=== PATIENT | female | born 1940 | race Caucasian/White ===

== ENCOUNTER → 2017-03-11 | Outpatient (CLI) | payer MEDICARE ==
--- NOTE | 2017-03-11 21:58 | US ---
EXAMINATION TYPE: US carotid duplex BILAT DATE OF EXAM: 03/11/2017 COMPARISON: NONE CLINICAL HISTORY: G45.9 Transient cerebral ischemic attack, unspecif. TIA, lightheaded EXAM MEASUREMENTS: RIGHT: Peak Systolic Velocity (PSV) cm/sec ----- Right CCA: 44.8 ----- Right ICA: 86.6 ----- Right ECA: 65.1 ICA/CCA ratio: 1.9 RIGHT: End Diastole cm/sec ----- Right CCA: 10.7 ----- Right ICA: 28.2 ----- Right ECA: 11.0 LEFT: Peak Systolic Velocity (PSV) cm/sec ----- Left CCA: 51.2 ----- Left ICA: 129.8 ----- Left ECA: 36.9 ICA/CCA ratio: 2.5 LEFT: End Diastole cm/sec ----- Left CCA: 15.5 ----- Left ICA: 37.7 ----- Left ECA: 5.1 VERTEBRALS (direction of flow): Right Vertebral: Antegrade Left Vertebral: Antegrade Rhythm: Normal Mild homogeneous plaque noted with increased velocity seen at mid left ICA Grayscale images show mild to minimal eccentric hyperechoic plaque distal left common carotid artery and more focal mild to moderate peripheral plaque at left carotid bulb. There is slight increased pea k systolic velocity in abnormal ratio. End-diastolic velocity remains upper limits of normal IMPRESSION: Asymmetric mild to moderate left-sided atherosclerotic change but I feel stenosis is a pproaching but under 50%.
== END | disposition home or self-care (01) ==
LOC: RADUSWWP 15:44
PROVIDERS: ATTEND Family Medicine
DX: I70.0 Atherosclerosis of aorta (principal); G45.9 Transient cerebral ischemic attack, unspecified
CPT/HCPCS: 93880

== ENCOUNTER → 2018-01-14 | Outpatient (CLI) | payer MEDICARE ==
--- NOTE | 2018-01-14 14:52 | US ---
EXAMINATION TYPE: US venous doppler duplex LE BI DATE OF EXAM: 01/14/2018 2:30 PM COMPARISON: NONE CLINICAL HISTORY: R60.0 Edema. SIDE PERFORMED: anel TECHNIQUE: The lower extremity deep venous system is examined utilizing real time linear array sonog kylah with graded compression, doppler sonography and color-flow sonography. VESSELS IMAGED: External Iliac Vein (EIV) Common Femoral Vein Deep Femoral Vein Greater Saphenous Vein * Femoral Vein Popliteal Vein Small Saphenous Vein * Proximal Calf Veins (* superficial vessels) Right Leg: Negative for DVT Left Leg: Negative for DVT Grayscale, color doppler, spectral doppler imaging performed of the deep veins of the bilateral lowe r extremities. There is normal flow, compressibility, vascular waveforms. IMPRESSION: No ultrasound evidence for acute DVT in either lower extremity.
== END | disposition home or self-care (01) ==
LOC: RADUSWWP 13:49
PROVIDERS: ATTEND Family Medicine
DX: R60.0 Localized edema (principal)
CPT/HCPCS: 93970

== ENCOUNTER → 2019-01-24 | Outpatient (CLI) | payer MEDICARE ==
--- NOTE | 2019-01-24 13:39 | US ---
EXAMINATION TYPE: US venous doppler duplex LE BI DATE OF EXAM: 01/24/2019 10:37 AM COMPARISON: 01/14/2018 CLINICAL HISTORY: 78-year-old female Edema R60.0. Right leg pain and swelling. SIDE PERFORMED: Bilateral TECHNIQUE: The lower extremity deep venous system is examined utilizing real time linear array sonog kylah with graded compression, doppler sonography and color-flow sonography. FINDINGS: VESSELS IMAGED: External Iliac Vein (EIV) Common Femoral Vein Deep Femoral Vein Greater Saphenous Vein * Femoral Vein Popliteal Vein Small Saphenous Vein * Proximal Calf Veins (* superficial vessels) Right Leg: Negative for DVT Left Leg: Negative for DVT IMPRESSION: No evidence for DVT within the bilateral lower extremities imaged from the groin to the upper calves.
== END | disposition home or self-care (01) ==
LOC: RADUSWWP 10:17
PROVIDERS: ATTEND Family Medicine
DX: R60.0 Localized edema (principal)
CPT/HCPCS: 93970

== ENCOUNTER → 2019-06-08 | Outpatient (CLI) | payer MEDICARE ==
--- NOTE | 2019-06-08 10:32 | XR ---
EXAMINATION TYPE: XR knee complete RT DATE OF EXAM: 06/08/2019 CLINICAL HISTORY: Right knee pain and swelling. TECHNIQUE: Three views of the right knee are obtained. COMPARISON: None. FINDINGS: There is no acute fracture/dislocation evident in right knee. The tri-compartment joint s paces appear aligned, however small marginal osteophytes are seen of all 3 compartments. The overlyi ng soft tissue appears unremarkable. IMPRESSION: There is no acute fracture or dislocation in the right knee. Mild tricompartmental arthr opathy.
== END | disposition home or self-care (01) ==
LOC: RADXRMAIN 09:17
PROVIDERS: ATTEND Family Medicine
DX: M17.11 Unilateral primary osteoarthritis, right knee (principal); M23.91 Unspecified internal derangement of right knee

== ENCOUNTER → 2020-10-25 | Outpatient (CLI) | payer MEDICARE ==
[2020-10-25 16:29] LABS: Appearance,Urine Clear (Clear); Bilirubin,Urine Negative (Negative); Blood,Urine Small (Negative); Color,Urine Yellow; Glucose,Urine (UA) Negative (Negative); Ketones,Urine Negative (Negative); Leukocyte Esterase,Urine Trace (Negative); Nitrite,Urine Negative (Negative); PH, Urine 6.5 (5.0-8.0); Protein,Urine Negative (Negative); RBC,Urine 4 /hpf (0-5); Specific Gravity,Urine 1.017 (1.001-1.035); Squamous Epithelial Cell,Urine 2 /hpf (0-4); Urobilinogen,Urine <2.0 mg/dL (<2.0); WBC,Urine 3 /hpf (0-5)
[2020-10-25 16:30] LABS: Albumin 3.7 g/dL (3.5-5.0); Calcium 9.7 mg/dL (8.4-10.2); Potassium 4.4 mmol/L (3.5-5.1); Total Bilirubin 0.1 mg/dL (0.2-1.3); Total Protein 6.8 g/dL (6.3-8.2)
[2020-10-25 16:33] LABS: INR 0.9 (<1.2); Partial Thromboplastin Time 23.7 sec (22.0-30.0); Prothrombin Time 9.9 sec (9.0-12.0)
[2020-10-25 16:40] LABS: HCT 38.1 % (34.0-46.0); HGB 12.3 gm/dL (11.4-16.0); MCH 30.9 pg (25.0-35.0); MCHC 32.3 g/dL (31.0-37.0); MCV 95.7 fL (80.0-100.0); Mean Platelet Volume 8.6; Platelet Count 263 k/uL (150-450); RBC 3.98 m/uL (3.80-5.40); RDW 13.5 % (11.5-15.5); WBC 9.8 k/uL (3.8-10.6)
== END | disposition home or self-care (01) ==
LOC: LABPAT 15:19
PROVIDERS: ATTEND Orthopaedic Surgery
DX: Z01.810 Encounter for preprocedural cardiovascular examination (principal); Z01.812 Encounter for preprocedural laboratory examination
CPT/HCPCS: 36415; 80053; 81001; 85027; 85610; 85730; 87070; 93005

== ENCOUNTER 2020-11-19 10:44 | Day surgery (SDC) | payer MEDICARE ==
[2020-10-31 12:33] VITALS: BMI 28.9
[~2020-11-19 10:44] MED LIST: ACETAMINOPHEN TAB 500 MG TAB PO PRN; DEXAMETHASONE SOD PHOSPHATE 4 MG/ML 1 ML VIAL IV ONE; GABAPENTIN 300 MG CAP PO PRN; HYDROmorphone 0.5 MG/0.5 ML SYRINGE IVP PRN; LIDOCAINE 1% (10MG/ML) FOR IV START INTRADERMA PRN; MELOXICAM 7.5 MG TAB PO PRN; MIDAZOLAM 2 MG/2 ML VIAL IV PRN; ONDANSETRON 4 MG/2 ML VIAL IVP ONE; ONDANSETRON 4 MG/2 ML VIAL IVP PRN; ROPIVACAINE/EPI/CLONIDINE/KET 50 ML SYRINGE MISCELLANE PRN; TRANEXAMIC ACID 1,000 MG in SODIUM CHLORIDE 0.9% 100 ML IVPB PRN
[2020-11-19] MEDS ORDERED: LACTATED RINGERS 1,000 ML IV ONE (11:52)
[2020-11-19] MEDS ORDERED: MIDAZOLAM 2 MG/2 ML VIAL IV ONE (12:06)
[2020-11-19] MEDS ORDERED: TRANEXAMIC ACID 1,000 MG/10 ML VIAL ONE (12:39)
[2020-11-19] MEDS ORDERED: DEXAMETHASONE SOD PHOSPHATE 4 MG/ML 1 ML VIAL ONE (12:39)
[2020-11-19] MEDS ORDERED: PROPOFOL 10 MG/ML 20 ML VIAL IV ONE (12:39)
[2020-11-19] MEDS ORDERED: fentaNYL (PF) 50 MCG/ML 2 ML AMP ONE (12:39)
[2020-11-19] MEDS ORDERED: ROPIVACAINE 5 MG/ML 30 ML VIAL ONE (12:39)
[2020-11-19] MEDS ORDERED: LIDOCAINE 1% INJ 10MG/ML (20 ML MDV) ONE (12:39)
[2020-11-19] MEDS ORDERED: ePHEDrine SULFATE/0.9% NACL/PF 50 MG/5 ML SYRINGE IV ONE (12:39)
[2020-11-19] MEDS ORDERED: SODIUM CHLORIDE 0.9% 100 ML BAG ONE (12:39)
--- NOTE | 2020-11-19 14:02 | P.OP ---
Date of Procedure: 11/19/20 Procedure(s) Performed: PREOPERATIVE DIAGNOSIS: Right knee severe osteoarthritis with genu varum POSTOPERATIVE DIAGNOSIS: Right knee severe osteoarthritis with genu varum OPERATION: Right knee cemented total replacement arthroplasty. ANESTHESIA: Spinal and regional ESTIMATED BLOOD LOSS: 100 ml. SPECIAL EDUCATION PARA PROFESSIONAL: Gaye Hernandez PA-C (assistance with: patient positioning, retraction, exposure, hemostasis, leg positioning, implantation, irrigation, closure, dressing) COMPLICATIONS: None apparent. COMPONENTS IMPLANTED: Journey II BCS [facility] INDICATIONS: Mrs. Gurrola is an 79 year old female with a history of right knee osteoarthritis. The patient's knee is end-stage, and conservative management has failed. The operation of knee replacement has been discussed at length in the office, as well as potential risks and complications. These are inclusive of, but not limited to: bleeding, infection, scarring, discomfort, blood vessel and nerve damage, need for further surgery, failure to relieve symptoms, persistence, recurrence, or worsening of problems, loosening, dislocation, wear, blood clot, pulmonary embolism, , gait dysfunction, stiffness, and other risks as discussed in the office. The patient elects to proceed and the consent form has been signed. PROCEDURE: The patient was taken to the operating room and positioned on the operating room table in the supine position. Anesthesia was initiated. Care was taken to make sure that all pressure points were adequately padded. The operative lower extremity was prepped and draped in the usual aseptic fashion using ChloraPrep. Ioban drape was used for the case and the patient received intravenous antibiotics within one hour of the incision. A pneumotourniquet and leg whitaker were used for the case. The limb was exsanguinated with an Esmarch bandage and the tourniquet was inflated to 350 mmHg. Time-out was called confirming the patient's identity, side, procedure and administration of antibiotics and tranexamic acid. The incision was then created midline directly over the right knee, carried down through skin and into the subcutaneous tissues and down to fascia. Full thickness subcutaneous medial flap was developed. Medial parapatellar arthrotomy was performed and the interior of the knee was inspected. There was end-stage osteoarthritis of the knee with a mild to moderate genu valgum type deformity. The fat pad was excised and proximal medial release on the tibia was completed using meticulous dissection and a curved osteotome. The anterior cruciate ligament was taken down. Note was made of significant attrition of the anterior and significant degenerative appearance of the cruciate ligaments. The exposure was excellent. The knee was flexed 90 degrees and the patella was everted. The [employer] pre- made distal cutting block was attached and pinned into position. The planned cut was analyzed visually and with the alignment consuelo and found to be satisfactory without the need for any adjustment. The oscillating saw was then used to make the distal femoral cut and make the alignment holes for the 5 in 1 block. This cut was confirmed to be flat with the flat end of an osteotome. The 5 in 1 block was then used to create the anterior posterior condylar resections and the chamfer cuts. The retractors were placed around the tibia and the tibial surface was addressed. The [employer] pre-made guide was placed onto the exposed tibial surface and pinned into position to arlette the rotational alignment. The alignment of the guide was checked for depth of plannned resection, slope, and varus valgus. Guide was confirmed to be in good position and the tibial cut was then created with protection of the posterior neurovascular structures and the collateral ligaments. The tibial cut surface was removed and sized. Spacer block technique was then used to confirm that the flexion and extension gaps were equal. Soft tissue releases and adjustment of the tibial and/or femoral cuts were made, as necessary, until the gaps were equal. This included release of the posterior cruciate ligament, which was excessively tight in this patient. The trial components were inserted. The tibial tray was allowed to self center and the patella was noted to track very well. The position of the tibial component was marked and noted to be nearly exactly aligned with the pre-drilled holes from the [employer] guide. The tibia was then finished for a stemmed tibial component. Patellar resurfacing was performed using a reamer. The size of the required patellar component was estimated and the patellar surface was then reamed down to a residual thickness which would recreate the [place] thickness with the component. The exact placement of the patellar component was adjusted for position based on preoperative x-rays and intraoperative findings. Trial components were removed and the cut surfaces of the bone were pulse lavaged thoroughly and dried. Cement was mixed on the back table and applied to the final components. Cement was then applied to the tibial surface and pressurized into the surface using finger pressurization technique. The tibial component was then applied and excess cement was removed after it was impacted securely and noted to be flush with the cut surface. In similar fashion, the cement was applied to the cut femoral surface, pressurized in using finger pressurization and the component was impacted into place. Excess cement was removed. The polyethylene spacer was then implanted and locked into position. The patellar component was then applied in similar technique and a patellar clamp was used to hold the patella in place as the cement hardened. Once the cement had fully hardened, the knee was reinspected. Any other cement extrusion was removed and final kinematic testing showed range of motion from 0 to 130 degrees with excellent stability, both medially and laterally and appropriate alignment of the leg. Patellar tracking was excellent. The knee was then thoroughly pulse lavaged with normal saline. The tourniquet was deflated and hemostasis was obtained with electrocautery and IV tranexamic acid, 1 g given at the start of the operation and 1 g at the start of closure. Closure was with #2 Ethibond in the fascia/capsule and supplemented with #2 Quill, 2-0 Vicryl suture was used for the subcutaneous tissues and 3-0 Quill for the skin. Dermabond/Steri-Strips were then applied. A lightly compressive dressing was applied using Webril and an Tres wrap. The patient was then transferred to stretcher and taken to the recovery room in stable condition. Sponge and needle counts were correct.
[2020-11-19] MEDS ORDERED: HYDROmorphone 0.2 MG/1 ML SYRINGE IVP PRN (14:43)
[2020-11-19] MEDS ORDERED: HYDROmorphone 0.5 MG/0.5 ML SYRINGE IVP PRN ×2 (14:43)
[2020-11-19] MEDS ORDERED: HYDROcodone/APAP 5-325MG 1 EACH TAB PO PRN ×2 (14:43)
[2020-11-19] MEDS ORDERED: NALOXONE 0.4 MG/ML 1 ML VIAL IV PRN (14:43)
[2020-11-19] MEDS ORDERED: hydrOXYzine pamoate 25 MG CAP PO PRN (14:43)
[2020-11-19] MEDS ORDERED: ONDANSETRON 4 MG/2 ML VIAL IVP PRN (14:43)
--- NOTE | 2020-11-19 14:58 | XR ---
EXAMINATION TYPE: XR knee limited RT DATE OF EXAM: 11/19/2020 CLINICAL HISTORY: Right knee pain and arthritis status post total knee replacement. TECHNIQUE: Portable AP and crosstable lateral views of the right knee are obtained immediately posto peratively. COMPARISON: 06/08/2019 FINDINGS: Metallic hardware from total right knee arthroplasty is seen with a few bony fragments in the lateral joint space measuring up to 1 cm. There is evidence of recent surgery with diffuse subcu taneous gas , vertical skin grace, and percutaneous suprapatellar surgical drain noted. IMPRESSION: Metallic hardware from total right knee arthroplasty is seen with a few bony fragments in the lateral joint space measuring up to 1 cm.
[2020-11-19] MEDS ORDERED: ROPIVACAINE 0.2%-NS ON-Q PUMP 1,090 MG, EMPTY PAIN BALL 1 EACH MISCELLANE PRN (15:00)
[2020-11-19] MEDS: LACTATED RINGERS 1,000 ML IV SCH (16:01)
[2020-11-19] MEDS: SODIUM CHLORIDE 0.9% 1,000 ML IV SCH (16:36)
[2020-11-19] MEDS: ASPIRIN 81 MG PO SCH (20:45)
[2020-11-19] MEDS: amLODIPine 5 MG TAB PO SCH (20:46)
[2020-11-19] MEDS ORDERED: SENNOSIDES-DOCUSATE SODIUM 1 EACH TAB PO SCH (21:00)
[2020-11-19] MEDS ORDERED: ATORVASTATIN 10 MG TAB PO SCH (21:00)
[2020-11-20] MEDS: SODIUM CHLORIDE 0.9% 1,000 ML IV SCH ×2 (01:22→09:50)
[2020-11-20 02:54] VITALS: RESP 16
[2020-11-20] MEDS: LACTATED RINGERS 1,000 ML IV SCH (04:41)
[2020-11-20] MEDS ORDERED: LEVOTHYROXINE 88 MCG TAB PO SCH (06:30)
--- NOTE | 2020-11-20 07:12 | CONS ---
CONSULTATION Covering for Dr. Shields. DATE OF CONSULTATION: 11/19/2020 REASON FOR CONSULTATION: Hypertension, hyperlipidemia. HISTORY: This 79-year-old woman with a past hypertension, history of DJD, history of thyroid cancer, history of ( ), is being followed by Dr. Freeman Shields in the outpatient setting, underwent right knee total arthroplasty by Dr. Vazquez. The patient tolerated the procedure well. The patient has some pain. The patient is going to ambulate with assistance at this time. There is no history of fever, rigors. No headache, loss of consciousness, seizures at this time. PAST MEDICAL HISTORY: History of hypertension, hypertension, DJD, hypothyroidism. MEDICATIONS: Medications prior to admission include Tenormin ( ), Zocor, Evista, MiraLAX, Synthroid, vitamin D3, calcium, vitamin C, aspirin. The doses are reviewed. ALLERGIES: ASPIRIN. FAMILY HISTORY: History of cancer in the family. SOCIAL HISTORY: No history of smoking. No alcohol intake. REVIEW OF SYSTEMS: ENT: No diminished vision. No diminished hearing. CARDIOVASCULAR SYSTEM: As mentioned earlier. GI: No nausea, vomiting. : No dysuria. NERVOUS SYSTEM: No numbness, weakness. ALLERGY: No asthma. MUSCULOSKELETAL: As mentioned. HEMATOLOGY: No history anemia. ENDOCRINE: As mentioned earlier. CONSTITUTIONAL: As mentioned. PSYCH: As mentioned earlier. PHYSICAL EXAMINATION: Patient is alert, oriented x3. The pulse is 52, blood pressure 120/77, respiration 20, temperature normal, pulse ox 98% on room air. HEENT: Conjunctivae normal. Oral mucosa moist. NECK: No jugular venous distention. No lymph node enlargement. CARDIOVASCULAR SYSTEM: S1, S2 muffled. RESPIRATION: Diminished breath sounds at the bases. No rhonchi. No crackles. ABDOMEN: Soft, nontender. No mass palpable. LEGS: No swelling. No edema. NERVOUS SYSTEM: As mentioned earlier. Moves all 4 limbs. LYMPHATICS: No lymph nodes. SKIN: No rashes. JOINTS: Status post surgery. LABS: The most recent labs are CBC within normal. The lytes are also normal. ASSESSMENT: 1. Status post right total knee joint arthroplasty. 2. Hypertension. 3. Hyperlipidemia. 4. History of degenerative joint disease. 5. Hypothyroidism. 6. History of bladder surgery. 7. Bradycardia. DISCUSSION AND RECOMMENDATIONS: This 79-year-old woman who presented with multiple complex medical issues, we will monitor the patient closely, continue the current management, recommend resume the home medication. Monitor blood pressure closely. Otherwise, we will follow the patient closely. The patient may be asked to follow with Dr. Shields closely. Thank you, Dr. Vazquez, for letting us participate in the care of this patient. MMODL / IJN: [id number] /
--- NOTE | 2020-11-20 07:23 | P.PN ---
Progress Note - Text 11/20/20 659am 79-year-old female status post total knee replacement by Dr. Vazquez. Patient seen and evaluated this morning for postop pain control, patient has an On-Q pump for pain relief with the solution running at 8 mL an hour. Patient has a VAS of 2 dressing clean dry and intact. Plan to continue On-Q pump infusion
[2020-11-20 07:27] VITALS: BP 120/62; PULSE 61; TEMP 97.4
--- NOTE | 2020-11-20 07:32 | P.ANPRN ---
Procedure Note - Anesthesia - Nerve Block Performed Right Adductor Canal Infusion Time Out Performed: Yes Date of Procedure: 11/19/20 Procedure Start Time: 12:05 Procedure Stop Time: 12:18 Location of Patient: PreOp Indication: Acute Post-Operative Pain, Requested by Surgeon Sedation Type: Sedate with meaningful contact maintained Preparation: Sterile Prep, Sterile Dressing Position: Supine Catheter: Indwelling Needle Types: Pajunk Needle Gauge: 21 Ultrasound used to visualize needle placement: Yes Ultrasound used to observe medication spread: Yes Blood Aspirated: No Pain Paresthesia on Injection Noted: No Resistance on Injection: Normal Image Stored and Saved: Yes Events: Uneventful and Well Tolerated (Ropivacaine 0.5% 20 mL was given)
--- NOTE | 2020-11-20 07:33 | P.ANPRN ---
Procedure Note - Anesthesia - Nerve Block Performed Right Emanuelck Single Time Out Performed: Yes Date of Procedure: 11/19/20 Location of Patient: PreOp Indication: Acute Post-Operative Pain, Requested by Surgeon Sedation Type: Sedate with meaningful contact maintained Preparation: Sterile Prep Position: Supine Needle Types: Pajunk Needle Gauge: 21 Ultrasound used to visualize needle placement: Yes Ultrasound used to observe medication spread: Yes Blood Aspirated: No Pain Paresthesia on Injection Noted: No Resistance on Injection: Normal Image Stored and Saved: Yes Events: Uneventful and Well Tolerated (Ropivacaine 0.5% 20 mL was given plus dexamethasone 4 mg)
[2020-11-20] MEDS: OXYBUTYNIN XL 5 MG TAB.ER.24 PO SCH ×2 (07:42→07:47)
[2020-11-20] MEDS: ASPIRIN 81 MG PO SCH (07:42)
[2020-11-20] MEDS: amLODIPine 5 MG TAB PO SCH (07:43)
[2020-11-20] MEDS ORDERED: CALCIUM CARBONATE 500 MG CHEWABLE PO SCH (09:00)
[2020-11-20] MEDS ORDERED: atenoloL 50 MG TAB PO SCH (09:00)
[2020-11-20] MEDS ORDERED: polyethylene glycoL 3350 17 GM POWD.PACK PO SCH (09:00)
[2020-11-20] MEDS ORDERED: CHOLECALCIFEROL 25 MCG (1000 IU) TABLET PO SCH (09:00)
[2020-11-20 10:24] LABS: Basophils # (A) 0.02 X 10*3/uL (0.00-0.10); Basophils % (A) 0.1 %; Eosinophils # (A) 0 X 10*3/uL (0.04-0.35); Eosinophils % (A) 0 %; HCT 37.5 % (37.2-46.3); HGB 11.8 g/dL (12.0-15.0); Lymphocytes # (A) 1.17 X 10*3/uL (0.90-5.00); Lymphocytes % (A) 6.3 %; MCH 31.1 pg (27.0-32.0); MCHC 31.5 g/dL (32.0-37.0); MCV 98.9 fL (80.0-97.0); Mean Platelet Volume 11.2 fL (9.5-12.2); Monocytes # (A) 1.25 X 10*3/uL (0.20-1.00); Monocytes % (A) 6.7 %; Neutrophils # (A) 15.99 X 10*3/uL (1.80-7.70); Neutrophils % (A) 86.3 %; Platelet Count 233 X 10*3/uL (140-440); RBC 3.79 X 10*6/uL (4.10-5.20); RDW 13.8 % (11.5-14.5); WBC 18.55 X 10*3/uL (4.50-10.00)
--- NOTE | 2020-11-20 10:58 | P.DS ---
Providers Expected date of discharge: 11/20/20 Attending physician: Justice Vazquez Consults: 11/19/20 14:43 Consult Physician Routine Consulting Provider: Freeman Shields Consult Reason/Comments: medical management Do you want consulting provider notified?: Yes Primary care physician: Freeman Shields [facility] Course: This is an 79-year-old female who was last seen with complaint of continued right knee pain. The patient has a known history of degenerative arthritis of the right knee and presents to discuss surgical options. After discussion and consideration the patient elects to proceed with total right knee arthroplasty. The patient is seen preoperatively by Dr. Shields and cleared for surgery. The patient is admitted to [facility] for total right knee arthroplasty. The procedures performed without complication or sequelae. Patient is doing well postoperatively. Vital signs are stable at discharge. Labs are stable at discharge. Patient is seen and examined bedside this morning. She is currently up to the bedside chair. Patient states her pain is well-controlled at this time. She is voiding freely. Patient is tolerating her diet well. She is ambulating with a walker with minimal assistance. Patient denies chest pain, shortness of breath, nausea, vomiting, numbness or tingling of the right lower extremity. The patient is discharged to home on postop day #1 pending medical clearance. Please see orders and refer to the [facility] for accurate list of medications. Patient Condition at Discharge: Fair Plan - Discharge Summary Discharge Rx Participant: Yes New Discharge Prescriptions: New Aspirin 81 mg PO BID 30 Days #60 chewable Sennosides-Docusate Sodium [Senokot-S] 2 tab PO HS PRN #30 tablet PRN Reason: Constipation Continue Simvastatin [Zocor] 20 mg PO HS Tolterodine ER [Detrol LA] 4 mg PO DAILY Raloxifene [Evista] 60 mg PO DAILY Levothyroxine Sodium [Synthroid] 88 mcg PO DAILY atenoloL [Tenormin] 50 mg PO DAILY Aspirin [Adult Low Dose Aspirin EC] 81 mg PO DAILY Ibuprofen 200 mg PO QID Polyethylene Glycol 3350 [Miralax] 0.5 tsp PO DAILY Cholecalciferol (Vitamin D3) [Vitamin D3 (5000 Iu)] 125 mcg PO DAILY Calcium Carbonate [Calcium] 600 mg PO DAILY Discharge Medication List Aspirin [Adult Low Dose Aspirin EC] 81 mg PO DAILY 01/04/16 [History] Levothyroxine Sodium [Synthroid] 88 mcg PO DAILY 05/07/15 [History] Raloxifene [Evista] 60 mg PO DAILY 05/07/15 [History] Simvastatin [Zocor] 20 mg PO HS 05/07/15 [History] Tolterodine ER [Detrol LA] 4 mg PO DAILY 05/07/15 [History] atenoloL [Tenormin] 50 mg PO DAILY 05/07/15 [History] Calcium Carbonate [Calcium] 600 mg PO DAILY 10/31/20 [History] Cholecalciferol (Vitamin D3) [Vitamin D3 (5000 Iu)] 125 mcg PO DAILY 10/31/20 [History] Ibuprofen 200 mg PO QID 10/31/20 [History] Polyethylene Glycol 3350 [Miralax] 0.5 tsp PO DAILY 10/31/20 [History] Aspirin 81 mg PO BID 30 Days #60 chewable 11/20/20 [Rx] Sennosides-Docusate Sodium [Senokot-S] 2 tab PO HS PRN #30 tablet 11/20/20 [Rx] Follow up Appointment(s)/Referral(s): [facility], [NON-STAFF] - ([facility] will call you to arrange the time for your first visit on 11/21/20.) Justice Vazquez MD [STAFF PHYSICIAN] - 10 Days Patient Instructions/Handouts: Knee Replacement (DC) Activity/Diet/Wound Care/Special Instructions: Keep Optifoam dressing intact. Use walker for ambulation. Take medications as prescribed. Follow-up in the office in ten days. Call with any questions or concerns, Discharge Disposition: HOME WITH HOME HEALTH SERVICES
[2020-11-20 12:23] LABS: African American GFR (CKD) 80.7 (60.0-200.0); Anion Gap 10.9 mmol/L (4.00-12.00); BUN/Creat Ratio 18.75 Ratio (12.00-20.00); Calcium 8.1 mg/dL (8.7-10.3); Carbon Dioxide 19.1 mmol/L (21.6-31.8); Non-African American GFR(CKD) 69.6 (60.0-200.0); Potassium 4.1 mmol/L (3.5-5.5)
--- NOTE | 2020-11-20 12:37 | P.PN ---
Subjective This is a pleasant 79-year-old female admitted the for right total knee arthroplasty patient is clinically doing well and is being discharged today p atient is on atenolol for hypertension. Patient blood pressure is fairly stable at 120/62 and considering her age of 79 probably it's not a good idea to send her on calcium channel yimi which will be discontinued discussion channel yimi was started here and patient received her first dose today. Patient will not need prescription for that patient does have some leukocytosis without evidence of infection patient is medically stable to be discharged. Constitutional: Denied any fatigue denied any fever. Cardio vascular: denied any chest pain, palpitations Gastrointestinal denied any nausea vomiting Pulmonary: Denied any shortness of breath cough Neurologic denied any new focal deficits All inpatient medications were reviewed and appropriate changes in these medications as dictated in the interval history and assessment and plan. PHYSICAL EXAMINATION: GENERAL: The patient is alert and oriented x3, not in any acute distress. Well developed, well nourished. HEENT: Pupils are round and equally reacting to light. EOMI. No scleral icterus. No conjunctival pallor. Normocephalic, atraumatic. No pharyngeal erythema. No thyromegaly. CARDIOVASCULAR: S1 and S2 present. No murmurs, rubs, or gallops. PULMONARY: Chest is clear to auscultation, no wheezing or crackles. ABDOMEN: Soft, nontender, nondistended, normoactive bowel sounds. No palpable organomegaly. MUSCULOSKELETAL: Deferred to orthopedic surgery EXTREMITIES: No cyanosis, clubbing, or pedal edema. NEUROLOGICAL: Gross neurological examination did not reveal any focal deficits. SKIN: No rashes. Assessment and plan -Hypertension patient can be continued on atenolol will not require any calcium Yimi at This Time -Hyperlipidemia #Right Totally Arthroplasty for Which Patient Is on DVT Prophylaxis with Aspirin Twice a Day -Hypothyroidism -Multi-joint primary osteoarthritis -Leukocytosis reactive without any evidence of infection DVT prophylaxis: Objective - Vital Signs Vital signs: Vital Signs Temp 97.4 F L 11/20/20 07:26 Pulse 61 11/20/20 07:26 Resp 16 11/20/20 07:26 BP 120/62 11/20/20 07:26 Pulse Ox 96 11/20/20 07:26 Intake & Output 11/19/20 11/20/20 11/20/20 18:59 06:59 18:59 Intake Total 800 Output Total 100 Balance 700 Weight 67 kg Intake: IV 800 Output: Estimated Blood Loss 100 Other: Voiding Method Toilet Toilet # Voids 0 5 - Labs CBC & Chem 7: 11/20/20 06:07 11/20/20 06:07 Labs: Abnormal Lab Results - Last 24 Hours (Table) 11/20/20 11/20/20 Range/Units 06:07 06:07 WBC 18.55 H (4.50-10.00) X 10*3/uL RBC 3.79 L (4.10-5.20) X 10*6/uL Hgb 11.8 L (12.0-15.0) g/dL MCV 98.9 H (80.0-97.0) fL MCHC 31.5 L (32.0-37.0) g/dL Immature Gran # 0.12 H (0.00-0.04) X 10*3/uL Neutrophils # 15.99 H (1.80-7.70) X 10*3/uL Monocytes # 1.25 H (0.20-1.00) X 10*3/uL Eosinophils # 0 L (0.04-0.35) X 10*3/uL Chloride 110 H (96-109) mmol/L Carbon Dioxide 19.1 L (21.6-31.8) mmol/L Glucose 123 H (70-110) mg/dL Calcium 8.1 L (8.7-10.3) mg/dL
== END 2020-11-20 13:35 | disposition home health service (06) ==
LOC: OR 10:44 → 4SSUR 14:51 → OR 11-20 13:35
PROVIDERS: ATTEND Orthopaedic Surgery
DX: M17.11 Unilateral primary osteoarthritis, right knee (principal); M21.161 Varus deformity, not elsewhere classified, right knee; E07.9 Disorder of thyroid, unspecified; I10 Essential (primary) hypertension; M81.0 Age-related osteoporosis without current pathological fracture; E78.5 Hyperlipidemia, unspecified; N32.9 Bladder disorder, unspecified; E03.9 Hypothyroidism, unspecified; E55.9 Vitamin D deficiency, unspecified; Z86.73 Personal history of transient ischemic attack (TIA), and cerebral infarction without residual deficits; Z87.440 Personal history of urinary (tract) infections; M85.80 Other specified disorders of bone density and structure, unspecified site; Z90.710 Acquired absence of both cervix and uterus; Z98.890 Other specified postprocedural states; Z79.890 Hormone replacement therapy; Z79.82 Long term (current) use of aspirin; Z79.899 Other long term (current) drug therapy; Z88.5 Allergy status to narcotic agent; Z88.2 Allergy status to sulfonamides
CPT/HCPCS: 97110; 97161; 64999; 64448; 76942; 80048; 85025; 88300; 73560; 27447; C1713; C1776; J2250; J1100; J0690 ×2; J2405; J2001; J3010; J2795 ×2; J2704; 64461

== ENCOUNTER → 2021-07-29 | Outpatient (CLI) | payer MEDICARE ==
--- NOTE | 2021-07-29 10:24 | FL ---
EXAMINATION TYPE: FL UGI w esophagus DATE OF EXAM: 07/29/2021 CLINICAL INDICATION: COMPARISON: Total Fluoroscopy Time: 1 minute 59 seconds 56 images obtained. FINDINGS: The swallowing mechanism is normal. There is mild anterior endplate spondylosis in the mid to lower c ervical spine resulting in mild posterior impression onto the back wall of the cervical esophagus but no obstruction. Otherwise, hypopharyngeal anatomy is preserved. The cervical and thoracic portions have a normal course and caliber. Mild to moderate tertiary perist altic waves are demonstrated in the distal half of the thoracic esophagus. The mucosa is normal and no persistent filling defect is encountered. There is a small sliding hiatal hernia demonstrated. Valsalva and positional maneuvers results in mil d gastroesophageal reflux visualized during the course of the exam. The stomach and duodenum are free of any persistent filling defect and demonstrate a normal mucosal p attern. IMPRESSION: 1. No stricture or suspicious mucosal lesion of the esophagus. No obstruction. 2. Mild to moderate esophageal dysmotility. 3. Small sliding hiatal hernia. Mild gastroesophageal reflux is visualized during the course of the e xam. Given the patient's symptoms, this may be underestimated. 4. Unremarkable appearance to the stomach and duodenum.
== END | disposition home or self-care (01) ==
LOC: RADUSWWP 08:39
PROVIDERS: ATTEND Family Medicine
DX: K21.9 Gastro-esophageal reflux disease without esophagitis (principal); K44.9 Diaphragmatic hernia without obstruction or gangrene; R13.10 Dysphagia, unspecified
CPT/HCPCS: 74240

== ENCOUNTER → 2023-01-23 | Outpatient (CLI) | payer MEDICARE ==
--- NOTE | 2023-01-23 10:58 | US ---
EXAMINATION TYPE: US venous doppler duplex LE DATE OF EXAM: 01/23/2023 10:48 AM COMPARISON: CLINICAL INDICATION: Female, 82 years old with history of I82.493 ACUTE DVT; Left leg appears bigger than right. No redness. SIDE PERFORMED: Bilateral TECHNIQUE: The lower extremity deep venous system is examined utilizing real time linear array sonog kylah with graded compression, doppler sonography and color-flow sonography. VESSELS IMAGED: Common Femoral Vein Deep Femoral Vein Greater Saphenous Vein * Femoral Vein Popliteal Vein Small Saphenous Vein * Proximal Calf Veins (* superficial vessels) Right Leg: Negative for DVT Left Leg: Negative for DVT IMPRESSION: Grayscale, color doppler, spectral doppler imaging performed of the deep veins of the lo wer extremities. There is normal flow, compressibility, vascular waveforms.
== END | disposition home or self-care (01) ==
LOC: RADUSWWP 10:15
PROVIDERS: ATTEND Podiatrist Foot & Ankle Surgery
DX: I82.493 Acute embolism and thrombosis of other specified deep vein of lower extremity, bilateral (principal)
CPT/HCPCS: 93970

== ENCOUNTER 2023-08-02 16:58 | Emergency (ER) | payer MEDICARE ==
--- NOTE | 2023-08-02 17:08 | ED ---
General Adult HPI - General Chief complaint: Weakness Stated complaint: Weakness Time Seen by Provider: 08/02/23 17:00 Source: patient Mode of arrival: EMS Limitations: no limitations - History of Present Illness Initial comments: Patient presents to the ED by ambulance for evaluation. Patient states that she has had burning dysuria and urinary frequency for the past couple of days, and she was diagnosed with a UTI at her PCP's clinic yesterday. Patient states that she was started on a "sulfa" antibiotic yesterday, and she states that she has felt generally weak and "not well" today. Patient states that she has had this type of reaction when taking sulfa antibiotics in the past. Patient also states that she has felt nauseated today, but she denies vomiting. Patient also states that she has had suprapubic/left lower quadrant abdominal pain radiating to the left side of her back, but she states that she has had that intermittently "for years". Patient denies trauma or injury, fever or chills, headache, focal numbness/weakness/neuro deficit, chest pain, dyspnea, cough or cold symptoms, palpitations, dizziness, upper abdominal pain, vomiting, diarrhea or constipation, bloody or melanotic stool, hematuria, or any other symptoms or com plaints. - Related Data Home Medications Medication Instructions Recorded Confirmed Levothyroxine Sodium [Synthroid] 88 mcg PO DAILY 05/07/15 08/02/23 Raloxifene [Evista] 60 mg PO DAILY 05/07/15 08/02/23 Simvastatin [Zocor] 20 mg PO HS 05/07/15 08/02/23 Tolterodine ER [Detrol LA] 4 mg PO DAILY 05/07/15 08/02/23 atenoloL [Tenormin] 50 mg PO DAILY 05/07/15 08/02/23 Linaclotide [Linzess] 72 mcg PO DAILY 08/02/23 08/02/23 Omeprazole 20 mg PO DAILY 08/02/23 08/02/23 Previous Rx's Medication Instructions Recorded Nitrofurantoin Monohyd/M-Cryst 100 mg PO Q12HR 7 Days #14 cap 08/02/23 [Macrobid] Allergies Allergy/AdvReac Type Severity Reaction Status Date / Time Sulfa (Sulfonamide Allergy Weakness, Verified 08/02/23 17:50 Antibiotics) Lethargic WASP Allergy Unknown RED STREAK Uncoded 08/02/23 17:50 AND SWELLING Review of Systems ROS Statement: Those systems with pertinent positive or pertinent negative responses have been documented in the HPI. ROS Other: All systems not noted in ROS Statement are negative. Past Medical History Past Medical History: Hyperlipidemia, Hypertension, Thyroid Disorder History of Any Multi-Drug Resistant Organisms: None Reported Additional Past Surgical History / Comment(s): bladder suspension Past Psychological History: No Psychological Hx Reported Smoking Status: Never smoker Past Alcohol Use History: None Reported Past Drug Use History: None Reported General Exam Limitations: no limitations General appearance: alert, in no apparent distress Head exam: Present: normocephalic Eye exam: Present: normal appearance ENT exam: Present: mucous membranes moist Respiratory exam: Present: normal lung sounds bilaterally. Absent: respiratory distress, wheezes, rales, rhonchi, stridor Cardiovascular Exam: Present: regular rate, normal rhythm, normal heart sounds, other (Normal radial pulses bilaterally) GI/Abdominal exam: Present: soft, normal bowel sounds, other (Mild suprapubic and left lower quadrant abdominal tenderness). Absent: distended, guarding, rebound Extremities exam: Absent: tenderness, pedal edema, calf tenderness Back exam: Absent: tenderness, CVA tenderness (R), CVA tenderness (L) Neurological exam: Present: alert, oriented X3. Absent: motor sensory deficit Psychiatric exam: Present: normal affect Skin exam: Present: warm, dry, normal color Course Vital Signs 08/02/23 08/02/23 17:01 19:23 Temperature 98.1 F Pulse Rate 72 79 Respiratory 18 20 Rate Blood Pressure 152/74 143/68 O2 Sat by Pulse 96 Oximetry - Reevaluation(s) Reevaluation #1: 08/02/23 20:05 Patient denies development of any new pain or symptoms while in the ED. Patient's abdomen remains soft and without any surgical signs on exam. Patient and family are aware of the patient's test results, and they all feel co mfortable with the patient being discharged home at this time. They were counseled about the patient's symptoms and UTIs. Patient reports having similar symptoms when started on a sulfa antibiotic in the past, and as such, will change the patient's antibiotic to Macrobid. Patient was given a dose of Macrobid in the ED, and a prescription was sent to her pharmacy. Patient was clearly explained return and follow-up instructions, and she was instructed to follow-up closely with her primary care provider. Patient feels comfortable with this plan. EKG Findings - EKG Comments: EKG Findings:: ED physician interpretation (interpreted by me): Normal sinus rhythm, ventricular rate of 86 bpm, normal TX and QRS intervals, normal QT interval, normal axis, voltage criteria for LVH, lateral ST and T wave abnormality consistent with strain pattern, no ST elevation Medical Decision Making - Medical Decision Making Was pt. sent in by a medical professional or institution (, PA, [facility], urgent care, hospital, or shelter...) When possible be specific @ -No Did you speak to anyone other than the patient for history (EMS, parent, family, police, friend...)? What history was obtained from this source @ -No Did you review nursing and triage notes (agree or disagree)? Why? @ -I reviewed and agree with nursing and triage notes Were old charts reviewed (outside hosp., previous admission, EMS record, old EKG, old radiological studies, urgent care reports/EKG's, shelter records)? Report findings @ -No old charts were reviewed Differential Diagnosis (chest pain, altered mental status, abdominal pain women, abdominal pain men, vaginal bleeding, weakness, fever, dyspnea, syncope, headache, dizziness, GI bleed, back pain, seizure, CVA, palpatations, mental health, musculoskeletal)? @ -Differential Weakness: Hypoglycemia, sepsis, hyponatremia, anemia, infection, UTI, AK, adverse medicine reaction, dehydration, electrolyte abnormality, renal disease, this is not meant to be an all-inclusive list. EKG interpreted by me (3pts min.). @ -As above X-rays interpreted by me (1pt min.). @ -None done CT interpreted by me (1pt min.). @ -Noncontrast CT abdomen/pelvis was reviewed myself. I do not see any acute abnormality. I agree with the radiologist's interpretation as above. U/S interpreted by me (1pt. min.). @ -None done What testing was considered but not performed or refused? (CT, X-rays, U/S, labs)? Why? @ -None What meds were considered but not given or refused? Why? @ -None Did you discuss the management of the patient with other professionals (professionals i.e. , PA, [facility]ER, lab, RT, psych nurse, social staff worker, global sourcing manager, teacher, head correction officer, keycase assembler)? Give summary @ -No Was smoking cessation discussed for >3mins.? @ -No Was critical care preformed (if so, how long)? @ -No Were there social determinants of health that impacted care today? How? (Homelessness, low income, unemployed, alcoholism, drug addiction, transportati on, low edu. Level, literacy, decrease access to med. care, half-way, rehab)? @ -No Was there de-escalation of care discussed even if they declined (Discuss DNR or withdrawal of care, Hospice)? DNR status @ -No What co-morbidities impacted this encounter? (DM, HTN, Smoking, COPD, CAD, Cancer, CVA, ARF, Chemo, Hep., AIDS, mental health diagnosis, sleep apnea, morbid obesity)? @ -None Was patient admitted / discharged? Hospital course, mention meds given and route, prescriptions, significant lab abnormalities, going to OR and other pertinent info. @ -Patient has a benign abdominal exam the ED. Patient's noncontrast CT abdomen/pelvis is unremarkable. Patient is afebrile. Patient's UA is sugg estive of UTI. Patient reports having similar symptoms when started on a sulfa antibiotic in the past, and as such, will change the patient's antibiotic to Macrobid. I do not suspect an emergent medical condition at this time. Will discharge patient home with her family at this time. Patient feels comfortable with this plan. Strict return instructions were provided. Undiagnosed new problem with uncertain prognosis? @ -No Drug Therapy requiring intensive monitoring for toxicity (Heparin, Nitro, Insulin, Cardizem)? @ -No Were any procedures done? @ -No Diagnosis/symptom? @ -Generalized weakness, nausea, UTI, suspected medication reaction Acute, or Chronic, or Acute on Chronic? @ -Acute Uncomplicated (without systemic symptoms) or Complicated (systemic symptoms)? @ -Default Side effects of treatment? @ -No Exacerbation, Progression, or Severe Exacerbation? @ -No Poses a threat to life or bodily function? How? (Chest pain, USA, AK, pneumonia, PE, COPD, DKA, ARF, appy, cholecystitis, CVA, Diverticulitis, Homicidal, Suicidal, threat to staff... and all critical care pts) @ -No - Lab Data Result diagrams: 08/02/23 17:23 08/02/23 17:23 Lab Results 08/02/23 08/02/23 08/02/23 Range/Units 17:23 17:23 17:23 WBC 12.3 H (3.8-10.6) k/uL RBC 3.97 (3.80-5.40) m/uL Hgb 12.0 (11.4-16.0) gm/dL Hct 38.0 (34.0-46.0) % MCV 95.9 (80.0-100.0) fL MCH 30.2 (25.0-35.0) pg MCHC 31.5 (31.0-37.0) g/dL RDW 13.3 (11.5-15.5) % Plt Count 232 (150-450) k/uL MPV 9.1 Neutrophils % 95 % Lymphocytes % 2 % Monocytes % 2 % Eosinophils % 0 % Basophils % 0 % Neutrophils # 11.6 H (1.3-7.7) k/uL Lymphocytes # 0.3 L (1.0-4.8) k/uL Monocytes # 0.2 (0-1.0) k/uL Eosinophils # 0.0 (0-0.7) k/uL Basophils # 0.0 (0-0.2) k/uL PT 10.6 (10.0-12.5) sec INR 1.0 (<1.2) APTT 24.3 (22.0-30.0) sec Sodium 133 L (137-145) mmol/L Potassium 3.9 (3.5-5.1) mmol/L Chloride 103 (98-107) mmol/L Carbon Dioxide 22 (22-30) mmol/L Anion Gap 8 mmol/L BUN 13 (7-17) mg/dL Creatinine 0.99 (0.52-1.04) mg/dL Est GFR (CKD-EPI)AfAm 61 (>60 ml/min/1.73 sqM) Est GFR (CKD-EPI)NonAf 53 (>60 ml/min/1.73 sqM) Glucose 150 H (74-99) mg/dL Calcium 8.4 (8.4-10.2) mg/dL Total Bilirubin 0.4 (0.2-1.3) mg/dL AST 23 (14-36) U/L ALT 14 (4-34) U/L Alkaline Phosphatase 70 (38-126) U/L Troponin I (0.000-0.034) ng/mL Total Protein 6.7 (6.3-8.2) g/dL Albumin 3.4 L (3.5-5.0) g/dL Lipase 38 (23-300) U/L Urine Color Urine Appearance (Clear) Urine pH (5.0-8.0) Ur Specific [place] (1.001-1.035) Urine Protein (Negative) Urine Glucose (UA) (Negative) Urine Ketones (Negative) Urine Blood (Negative) Urine Nitrite (Negative) Urine Bilirubin (Negative) Urine Urobilinogen (<2.0) mg/dL Ur Leukocyte Esterase (Negative) Urine RBC (0-5) /hpf Urine WBC (0-5) /hpf Ur Squamous Epith Cells (0-4) /hpf 08/02/23 08/02/23 Range/Units 17:23 18:29 WBC (3.8-10.6) k/uL RBC (3.80-5.40) m/uL Hgb (11.4-16.0) gm/dL Hct (34.0-46.0) % MCV (80.0-100.0) fL MCH (25.0-35.0) pg MCHC (31.0-37.0) g/dL RDW (11.5-15.5) % Plt Count (150-450) k/uL MPV Neutrophils % % Lymphocytes % % Monocytes % % Eosinophils % % Basophils % % Neutrophils # (1.3-7.7) k/uL Lymphocytes # (1.0-4.8) k/uL Monocytes # (0-1.0) k/uL Eosinophils # (0-0.7) k/uL Basophils # (0-0.2) k/uL PT (10.0-12.5) sec INR (<1.2) APTT (22.0-30.0) sec Sodium (137-145) mmol/L Potassium (3.5-5.1) mmol/L Chloride (98-107) mmol/L Carbon Dioxide (22-30) mmol/L Anion Gap mmol/L BUN (7-17) mg/dL Creatinine (0.52-1.04) mg/dL Est GFR (CKD-EPI)AfAm (>60 ml/min/1.73 sqM) Est GFR (CKD-EPI)NonAf (>60 ml/min/1.73 sqM) Glucose (74-99) mg/dL Calcium (8.4-10.2) mg/dL Total Bilirubin (0.2-1.3) mg/dL AST (14-36) U/L ALT (4-34) U/L Alkaline Phosphatase (38-126) U/L Troponin I <0.012 (0.000-0.034) ng/mL Total Protein (6.3-8.2) g/dL Albumin (3.5-5.0) g/dL Lipase (23-300) U/L Urine Color Colorless Urine Appearance Clear (Clear) Urine pH 7.5 (5.0-8.0) Ur Specific [place] 1.010 (1.001-1.035) Urine Protein Negative (Negative) Urine Glucose (UA) Negative (Negative) Urine Ketones Negative (Negative) Urine Blood Moderate H (Negative) Urine Nitrite Negative (Negative) Urine Bilirubin Negative (Negative) Urine Urobilinogen <2.0 (<2.0) mg/dL Ur Leukocyte Esterase Small H (Negative) Urine RBC 22 H (0-5) /hpf Urine WBC 33 H (0-5) /hpf Ur Squamous Epith Cells 1 (0-4) /hpf - Radiology Data Noncontrast CT abdomen/pelvis: No suspicious acute abnormality to account for left lower quadrant pain. Disposition Clinical Impression: Generalized weakness, Nausea, Urinary tract infection Disposition: HOME SELF-CARE Condition: Stable Instructions (If sedation given, give patient instructions): Urinary Tract Infection in Women (ED), Acute Nausea and Vomiting (ED), Weakness (ED) Additional Instructions: Return to the ER immediately should you develop new or worsening pain, a fever, persistent vomiting, shortness of breath, feeling dizzy or faint, or new or worsening symptoms. Follow-up closely with your primary care provider. Prescriptions: Nitrofurantoin Monohyd/M-Cryst [Macrobid] 100 mg PO Q12HR 7 Days #14 cap Is patient prescribed a controlled substance at d/c from ED?: No Referrals: Freeman Shields MD [Primary Care Provider] - 1-2 days Time of Disposition: 20:08
[2023-08-02 17:11] VITALS: TEMP 98.1
[2023-08-02 17:31] LABS: Basophils % (A) 0 %; Eosinophils % (A) 0 %; Lymphocytes # (A) 0.3 k/uL (1.0-4.8); Lymphocytes % (A) 2 %; MCH 30.2 pg (25.0-35.0); MCHC 31.5 g/dL (31.0-37.0); MCV 95.9 fL (80.0-100.0); Mean Platelet Volume 9.1; Monocytes # (A) 0.2 k/uL (0-1.0); Monocytes % (A) 2 %; Neutrophils # (A) 11.6 k/uL (1.3-7.7); Neutrophils % (A) 95 %; Platelet Count 232 k/uL (150-450); RBC 3.97 m/uL (3.80-5.40); RDW 13.3 % (11.5-15.5); WBC 12.3 k/uL (3.8-10.6)
[2023-08-02 17:42] LABS: Partial Thromboplastin Time 24.3 sec (22.0-30.0); Prothrombin Time 10.6 sec (10.0-12.5)
[2023-08-02 17:46] LABS: ALT 14 U/L (4-34); AST 23 U/L (14-36); African American GFR (CKD) 61 (>60 ml/min/1.73 sqM); Albumin 3.4 g/dL (3.5-5.0); Alkaline Phosphatase 70 U/L (38-126); Anion Gap 8 mmol/L; Blood Urea Nitrogen 13 mg/dL (7-17); Calcium 8.4 mg/dL (8.4-10.2); Carbon Dioxide 22 mmol/L (22-30); Chloride 103 mmol/L (98-107); Glucose 150 mg/dL (74-99); Lipase 38 U/L (23-300); Non-African American GFR(CKD) 53 (>60 ml/min/1.73 sqM); Potassium 3.9 mmol/L (3.5-5.1); Sodium 133 mmol/L (137-145); Total Bilirubin 0.4 mg/dL (0.2-1.3); Total Protein 6.7 g/dL (6.3-8.2)
[2023-08-02 19:11] LABS: Appearance,Urine Clear (Clear); Bilirubin,Urine Negative (Negative); Blood,Urine Moderate (Negative); Color,Urine Colorless; Glucose,Urine (UA) Negative (Negative); Ketones,Urine Negative (Negative); Leukocyte Esterase,Urine Small (Negative); Nitrite,Urine Negative (Negative); PH, Urine 7.5 (5.0-8.0); Protein,Urine Negative (Negative); RBC,Urine 22 /hpf (0-5); Squamous Epithelial Cell,Urine 1 /hpf (0-4); Urobilinogen,Urine <2.0 mg/dL (<2.0); WBC,Urine 33 /hpf (0-5)
--- NOTE | 2023-08-02 19:35 | CT ---
EXAMINATION TYPE: CT abdomen pelvis wo con DATE OF EXAM: 08/02/2023 COMPARISON: None INDICATION: LLQ/L Flank pain. DLP: 378.2 mGycm, Automated exposure control for dose reduction was used. CONTRAST: 0 mL of Isovue 300. Study performed without Oral Contrast TECHNIQUE: Axial images were obtained from above the diaphragm to the pubic rami in the axial plane a t 5 mm thick sections. Reconstructed images are reviewed on the computer in the coronal plane. FINDINGS: Limited CT sections are obtained the lung bases. The lung bases are clear. CT ABDOMEN: Liver: Normal Spleen: Normal Pancreas: Normal Adrenal glands: The adrenal glands are normal. Gallbladder: Normal Kidneys: No masses are evident. No hydronephrosis is present. No cysts are present. No renal stone s are evident. Extrarenal pelves are present bilaterally. Aorta: Vascular calcification is within the aorta. Inferior vena cava: Normal. CT PELVIS: Loops of bowel within the abdomen and pelvis are normal. This study is without oral contrast limi ting bowel evaluation. No suspicious dilated loops of bowel are evident. No diverticulosis or acute d iverticulitis evident. No adjacent inflammatory changes evident. Appendix: Not identified. No dilated tubular structure or inflammatory change is evident. Urinary bladder: Normal. Genitourinary structures: Uterus is not clearly identified. Adnexal regions are unremarkable Osseous structures: No suspicious lytic or sclerotic lesions. IMPRESSION: 1. No suspicious acute abnormality to account for left lower quadrant pain
[2023-08-02] MEDS: CIPROFLOXACIN HCL 250 MG TAB PO STA (20:39)
[2023-08-02] MEDS: NITROFURANTOIN MONOHYD/M-CRYST 100 MG CAP PO STA (20:39)
[2023-08-02 21:08] VITALS: BP 155/60; PULSE 76; RESP 18
== END 2023-08-02 20:50 | disposition home or self-care (01) ==
LOC: EC 16:58
DX: N39.0 Urinary tract infection, site not specified (principal); R53.1 Weakness; I45.9 Conduction disorder, unspecified; Z88.2 Allergy status to sulfonamides; Z88.1 Allergy status to other antibiotic agents
CPT/HCPCS: 36415; 74176; 80053; 81001; 83690; 84484; 85025; 85610; 85730; 87086; 93005; 99285

== ENCOUNTER → 2024-03-15 | Outpatient (CLI) | payer MEDICARE ==
--- NOTE | 2024-03-15 17:06 | US ---
EXAMINATION TYPE: US kidneys/renal and bladder DATE OF EXAM: 03/15/2024 COMPARISON: CT CLINICAL INDICATION: Female, 83 years old with history of N39.9 UTI; UTI TECHNIQUE: Grayscale imaging of the bilateral kidneys and urinary bladder: FINDINGS: EXAM MEASUREMENTS: Right Kidney: 10.5 x 3.8 x 4.5 cm Left Kidney: 10.6 x 4.7 x 4.5 cm Right Kidney: Cortical thinning, no evidence of hydro, mild renal pelvis fullness Left Kidney: Cortical thinning, no evidence of hydro, mild renal pelvis fullness Bladder: Not fully distended due to pt having UTI- limited views show no abnormality Bilateral Jets seen: Yes IMPRESSION: Medical renal disease with cortical thinning. No evidence for obstructive uropathy. [facility], , 03/15/2024 5:04 PM
== END | disposition home or self-care (01) ==
LOC: RADUSWWP 14:16
PROVIDERS: ATTEND Urology
DX: N39.9 Disorder of urinary system, unspecified (principal); N28.9 Disorder of kidney and ureter, unspecified
CPT/HCPCS: 76770

== ENCOUNTER → 2024-04-15 | Outpatient (CLI) | payer MEDICARE ==
[2024-04-15 12:50] LABS: African American GFR (CKD) 73 (>60 ml/min/1.73 sqM); Blood Urea Nitrogen 29 mg/dL (7-17); Non-African American GFR(CKD) 63 (>60 ml/min/1.73 sqM)
--- NOTE | 2024-04-15 16:26 | CT ---
EXAMINATION TYPE: CT urogram wo/w con CT DLP: 2809 mGycm, Automated exposure control for dose reduction was used. DATE OF EXAM: 04/15/2024 2:04 PM COMPARISON: CT abdomen pelvis 08/02/2023, renal ultrasound 03/15/2024 CLINICAL INDICATION:Female, 83 years old with history of N39.0 URINARY TRACT INFECTION, SITE NOT SPEC IFIED; PHH, Chronic UTI. TECHNIQUE: Urogram of the abdomen and pelvis was performed before and after the administration of 100 cc of IV c ontrast Isovue 300 contrast. Delayed imaging was performed. Coronal and sagittal reformats were perfo rmed. One or more CT dose reduction strategies were utilized during this examination. 2D and 3D recon structions are performed to assist visualization of the urinary tract on a separate workstation. FINDINGS: GENITOURINARY: RIGHT KIDNEY AND URETER: No calculi. No hydronephrosis or hydroureter. Extrarenal pelvis. No suspicio us renal mass or other lesions. No urothelial lesions: no filling defect, dilation, stricture or wall thickening. LEFT KIDNEY AND URETER: No calculi. No hydronephrosis or hydroureter. Extrarenal pelvis. Few subcenti meter nonenhancing cysts. No suspicious renal mass or other lesions. No urothelial lesions: no fillin g defect, dilation, stricture or wall thickening. URINARY BLADDER: Moderately well distended. No calculi or suspicious masses. A few foci of gas within the nondependent portion of the urinary bladder. REPRODUCTIVE: Uterus is surgically absent. ABDOMEN LIVER: Subcentimeter right hepatic lobe hypodense lesion likely representing a cyst.. GALLBLADDER AND BILE DUCTS: Unremarkable PANCREAS: Unremarkable. SPLEEN: Unremarkable. ADRENAL GLANDS: Unremarkable. STOMACH AND BOWEL: Unremarkable. No evidence of bowel obstruction. PERITONEUM: No evidence of pneumoperitoneum, free fluid, or adenopathy. VASCULATURE: Atherosclerotic calcifications are present throughout the abdominal aorta and its branch es. , Aortic aneurysm. MUSCULOSKELETAL: No acute osseous abnormalities. SOFT TISSUE/ABDOMINAL WALL: Small fat filled umbilical hernia. LOWER CHEST: Mild dependent bilateral lower lobe subsegmental atelectasis. Cardiomegaly. Small bolden ry calcifications. No pericardial effusion. IMPRESSION: 1. No evidence of urolithiasis or concerning renal/urothelial neoplasm. 2. Few foci of gas within the nondependent portion urinary bladder. Correlate for history of recent i nstrumentation otherwise correlate with urinalysis for cystitis. [facility], , 04/15/2024 4:23 PM
== END | disposition home or self-care (01) ==
LOC: RADCTMAIN 12:05
PROVIDERS: ATTEND Urology
DX: N39.0 Urinary tract infection, site not specified (principal); Z87.440 Personal history of urinary (tract) infections
CPT/HCPCS: 82565; 84520; 74178; 36415; 74400; Q9967

== ENCOUNTER 2024-07-06 08:29 | Day surgery (SDC) | payer MEDICARE ==
[2024-07-05 11:33] VITALS: BMI 26.9
--- NOTE | 2024-07-06 08:13 | P.GSHP ---
History of Present Illness H&P Date: 07/06/24 CHIEF COMPLAINT: GERD and colon screen HISTORY OF PRESENT ILLNESS: The patient is a 83-year-old female who presents with gastroesophageal reflux disease and need for colon screen. Upper and lower endoscopy were offered for further evaluation and management. PAST MEDICAL HISTORY: Please see list. PAST SURGICAL HISTORY: Please see list. MEDICATIONS: Please see list. ALLERGIES: Please see list. SOCIAL HISTORY: No illicit drug use FAMILY HISTORY: No reports of Crohn disease or ulcerative colitis. REVIEW OF ORGAN SYSTEMS: CONSTITUTIONAL: No reports of fevers or chills. GI: Denies any blood in stools or constipation. PHYSICAL EXAM: VITAL SIGNS: Stable GENERAL: Well-developed pleasant in no acute distress. HEENT: No scleral icterus. Extraocular movements grossly intact. Moist buccal mucosa. NECK: Supple without lymphadenopathy. CHEST: Unlabored respirations. Equal bilateral excursions. CARDIOVASCULAR: Regular rate and rhythm. Distal 2+ pulses. ABDOMEN: Soft, nondistended. MUSCULOSKELETAL: No clubbing, cyanosis, or edema. ASSESSMENT: 1. Gastroesophageal reflux disease 2. Colon screen. PLAN: 1. Recommend proceeding with an upper and lower endoscopy Past Medical History Past Medical History: Hyperlipidemia, Hypertension, Thyroid Disorder Additional Past Medical History / Comment(s): constipation poss IBS History of Any Multi-Drug Resistant Organisms: None Reported Past Surgical History: Joint Replacement Additional Past Surgical History / Comment(s): bladder suspension,rt tot knee Past Anesthesia/Blood Transfusion Reactions: No Reported Reaction Additional Past Anesthesia/Blood Transfusion Reaction / Comment(s): no hx blood transfusion Smoking Status: Never smoker - Past Family History Mother Family Medical History: No Reported History Brother(s) Family Medical History: Cancer Additional Family Medical History / Comment(s): skin Medications and Allergies Home Medications Medication Instructions Recorded Confirmed Type Levothyroxine Sodium [Synthroid] 88 mcg PO QAM 05/07/15 07/05/24 History Raloxifene [Evista] 60 mg PO DAILY 05/07/15 07/05/24 History Simvastatin [Zocor] 20 mg PO HS 05/07/15 07/05/24 History Tolterodine ER [Detrol LA] 4 mg PO DAILY 05/07/15 07/05/24 History atenoloL [Tenormin] 50 mg PO QAM 05/07/15 07/05/24 History Aspirin 81 mg PO DAILY 07/05/24 07/05/24 History Calcium Carbonate/Vitamin D3 1 each PO DAILY 07/05/24 07/05/24 History [Calcium 600 mg-D3 20 mcg (800 unit)] Cephalexin [Keflex] 250 mg PO DAILY 07/05/24 07/05/24 History Cholecalciferol [Vitamin D3 (25 25 mcg PO DAILY 07/05/24 07/05/24 History Mcg = 1000 Iu)] Allergies Allergy/AdvReac Type Severity Reaction Status Date / Time Sulfa (Sulfonamide Allergy Weakness, Verified 07/05/24 11:12 Antibiotics) Lethargic ciprofloxacin AdvReac tendonitis Verified 07/05/24 11:28 codeine AdvReac "doesn't Verified 07/05/24 11:28 like to take" levofloxacin AdvReac tendonitis Verified 07/05/24 11:28 nitrofurantoin AdvReac confusion/disorientation,severe Verified 07/05/24 11:28 diarrhea WASP Allergy Unknown RED STREAK Uncoded 07/05/24 11:12 AND SWELLING
[~2024-07-06 08:29] MED LIST changes: -ACETAMINOPHEN TAB 500 MG TAB PO PRN; -DEXAMETHASONE SOD PHOSPHATE 4 MG/ML 1 ML VIAL IV ONE; -GABAPENTIN 300 MG CAP PO PRN; -HYDROmorphone 0.5 MG/0.5 ML SYRINGE IVP PRN; -MELOXICAM 7.5 MG TAB PO PRN; -MIDAZOLAM 2 MG/2 ML VIAL IV PRN; -ONDANSETRON 4 MG/2 ML VIAL IVP ONE; -ONDANSETRON 4 MG/2 ML VIAL IVP PRN; -ROPIVACAINE/EPI/CLONIDINE/KET 50 ML SYRINGE MISCELLANE PRN; -TRANEXAMIC ACID 1,000 MG in SODIUM CHLORIDE 0.9% 100 ML IVPB PRN
[2024-07-06 09:08] VITALS: RESP 16; TEMP 98
[2024-07-06] MEDS: IV FLUID CONTINUATION 1,000 ML IV ONE (09:14)
[2024-07-06] MEDS: LACTATED RINGERS 1,000 ML IV SCH (09:14)
[2024-07-06] MEDS ORDERED: PROPOFOL 10 MG/ML 20 ML VIAL IV ONE (09:28)
--- NOTE | 2024-07-06 09:51 | P.PCN ---
Date of Procedure: 07/06/24 Description of Procedure: PREOPERATIVE DIAGNOSIS: Dysphagia. POSTOPERATIVE DIAGNOSIS: Dysphagia. Hypertensive upper esophageal sphincter. Diaphragmatic hiatal hernia OPERATION: Esophagogastroduodenoscopy rigid Citizen [place] dilator 51 Fr, upper esophageal sphincter. SURGEON: Bee Lay MD ANESTHESIA: MAC. INDICATIONS: The patient is a 83-year-old female who presents with dysphagia. She reports troubles with swallowing pills along her upper throat. Upper endoscopy was offered for further diagnostic evaluation and treatment. DESCRIPTION: The patient was brought into the endoscopy suite and laid in the left lateral decubitus position. An Olympus gastroscope was carefully passed along the posterior oropharynx. Upon entry into the proximal esophagus, a mild stricture was identified consistent with hypertensive upper esophageal sphincter. No erosion were found along the distal esophagus or ulcerations. The stomach was entered. The scope was passed to the second portion and third portion of the duodenum was unremarkable. Retroflexion of the scope confirmed Hill grade 2 lower esophageal valve without recurrent diaphragmatic hiatal hernia. A guidewire was placed through the scope into the stomach. The scope was removed. A 51-[place] rigid dilator was placed to 45 cm from the incisors. The dilator was left in place between 2-3 minutes. The dilator and guidewire were removed. The scope was reentered along the proximal esophagus whereby the stricture had resolved of the upper esophagus. No full-thickness injury was found along the mucosa. The stomach was desufflated. The patient tolerated the procedure well. FINDINGS: Squamocolumnar junction 37 cm from the incisors. Diaphragmatic hiatus at 38 cm. Diaphragmatic hiatal hernia 1 cm Hill grade 2 lower esophageal valve. LA grade B erosive esophagitis. Hypertensive upper esophageal sphincter dilated to 51 [place] RECOMMENDATIONS: Upper endoscopy as needed. Warm salt gargle 3 times daily for 3 days No sharp foods for 3 days
[2024-07-06 10:29] VITALS: BP 150/73; PULSE 70
--- NOTE | 2024-07-06 10:45 | P.PCN ---
Date of Procedure: 07/06/24 Description of Procedure: PREOPERATIVE DIAGNOSIS: Change in bowel habits with constipation POSTOPERATIVE DIAGNOSIS: Change in bowel habits with constipation OPERATION: Colonoscopy to the cecum, ileocecal valve and appendiceal orifice. SURGEON: Bee Lay MD. ANESTHESIA: MAC. INDICATIONS: The patient is a 83-year-old female who presents with change in bowel habits including history of incomplete colonoscopies. Benefits and risks were described and informed consent was obtained. DESCRIPTION OF PROCEDURE: The patient had undergone GoLytely prep. The patient had been brought into the operating room and laid in the left lateral decubitus position. After adequate intravenous sedation, the rectum was examined with 2% lidocaine jelly. External hemorrhoids were encountered. The rectal tone was within normal limits. No lesions were palpated in the rectal vault. An Olympus colonoscope was advanced until the cecum, ileocecal valve and appendiceal orifice were clearly viewed. The prep was good. No scattered diverticulosis was encountered. No colonic polyps were found. No evidence of focal colitis was found. Retroflexion of the scope demonstrated grade 2 internal hemorrhoids without active bleeding or inflammation. The colon was desufflated. The patient had tolerated the procedure well. Withdrawal time was over 6 minutes. FINDINGS: Aronchick preparation quality scale 2 (1-5) Internal hemorrhoids, grade 2 External prolapsed hemorrhoids, grade 2 Redundant sigmoid colon requiring abdominal wall pressure No arteriovenous malformations. No adenomatous polyps. No focal colitis. RECOMMENDATIONS: Lower endoscopy as needed Lactulose 30 mg daily as needed for constipation Plan - Discharge Summary Discharge Rx Participant: No New Discharge Prescriptions: New Lactulose [Cephulac] 30 ml PO DAILY PRN #500 ml PRN Reason: Constipation Omeprazole [PriLOSEC] 40 mg PO DAILY #14 cap Continue Simvastatin [Zocor] 20 mg PO HS Tolterodine ER [Detrol LA] 4 mg PO DAILY Raloxifene [Evista] 60 mg PO DAILY Levothyroxine Sodium [Synthroid] 88 mcg PO QAM atenoloL [Tenormin] 50 mg PO QAM Cholecalciferol [Vitamin D3 (25 Mcg = 1000 Iu)] 25 mcg PO DAILY Aspirin 81 mg PO DAILY Calcium Carbonate/Vitamin D3 [Calcium 600 mg-D3 20 mcg (800 unit)] 1 each PO DAILY Cephalexin [Keflex] 250 mg PO DAILY Discharge Medication List Levothyroxine Sodium [Synthroid] 88 mcg PO QAM 05/07/15 [History] Raloxifene [Evista] 60 mg PO DAILY 05/07/15 [History] Simvastatin [Zocor] 20 mg PO HS 05/07/15 [History] Tolterodine ER [Detrol LA] 4 mg PO DAILY 05/07/15 [History] atenoloL [Tenormin] 50 mg PO QAM 05/07/15 [History] Aspirin 81 mg PO DAILY 07/05/24 [History] Calcium Carbonate/Vitamin D3 [Calcium 600 mg-D3 20 mcg (800 unit)] 1 each PO DAILY 07/05/24 [History] Cephalexin [Keflex] 250 mg PO DAILY 07/05/24 [History] Cholecalciferol [Vitamin D3 (25 Mcg = 1000 Iu)] 25 mcg PO DAILY 07/05/24 [History] Lactulose [Cephulac] 30 ml PO DAILY PRN #500 ml 07/06/24 [Rx] Omeprazole [PriLOSEC] 40 mg PO DAILY #14 cap 07/06/24 [Rx] Follow up Appointment(s)/Referral(s): Bee Lay MD [STAFF PHYSICIAN] - 07/19/24 9:30 am Patient Instructions/Handouts: *Surgery [facility] - (Anesthesia) Discharge Instructions Outpatient Surgery, Esophageal Dilation (DC) Activity/Diet/Wound Care/Special Instructions: Warm salt gargle 3 times daily for 3 days No sharp foods for 3 days Soft foods for 3 days until 07/09/2024 Colonoscopy as needed Discharge Disposition: HOME SELF-CARE
== END 2024-07-06 11:34 | disposition home or self-care (01) ==
LOC: ORWHC2ENDO 08:29
PROVIDERS: ATTEND Surgery Plastic and Reconstructive Surgery
DX: K44.9 Diaphragmatic hernia without obstruction or gangrene (principal); K64.1 Second degree hemorrhoids; K58.9 Irritable bowel syndrome, unspecified; K63.89 Other specified diseases of intestine; I10 Essential (primary) hypertension; E78.5 Hyperlipidemia, unspecified; E07.9 Disorder of thyroid, unspecified; Z79.82 Long term (current) use of aspirin; Z79.890 Hormone replacement therapy; Z88.1 Allergy status to other antibiotic agents; Z88.2 Allergy status to sulfonamides; Z88.5 Allergy status to narcotic agent; Z88.8 Allergy status to other drugs, medicaments and biological substances; Z98.890 Other specified postprocedural states
CPT/HCPCS: 45378; 43248; J2704